=== PATIENT | male | born 1970 | race Asian ===

== ENCOUNTER 2021-11-13 14:28 | Emergency (ER) | payer SELFPAY ==
[2021-11-13 15:34] LABS: HEMOGLOBIN 15.7 gm/dl (14.0-17.5); RED BLOOD COUNT 5.01 M/UL (4.20-5.50); WHITE BLOOD COUNT 7.5 K/UL (4.5-11.0)
[2021-11-13 15:49] LABS: BUN/CREATININE RATIO 17 (0-10)
[2021-11-13] MEDS ORDERED: VISTARIL 50 MG50 MG PO (17:33)
[2021-11-13] MEDS ORDERED: IBUPROFEN800 MG PO (17:33)
== END 2021-11-13 17:54 | disposition home or self-care (01) ==
LOC: ER1 14:28
PROVIDERS: Physician Assistant
DX: R51.9 Headache, unspecified (principal); R41.3 Other amnesia; F17.200 Nicotine dependence, unspecified, uncomplicated
CPT/HCPCS: 70450; 80053; 85025; 99284